=== PATIENT | female | born 1930 | race Caucasian/White ===

== ENCOUNTER 2017-03-01 16:31 | Inpatient (IN) | payer MEDICARE ==
[~2017-03-01] VITALS: Ht 167.6 cm; Wt 70.1 kg
[~2017-03-01 16:31] MED LIST: DIPH25 PO; HYDR-4068 PO; LEVO75TA10 PO; METO25TA6 PO; METO50TA18 PO; PANT40TA25 PO
[2017-03-01 17:10] LABS: BASOPHILS % (AUTO) 0.7 % (0.0-5.0); EOSINOPHILS % (AUTO) 0.2 % (0.0-8.0); HEMATOCRIT 41.3 % (36-48); LYMPHOCYTES % (AUTO) 11.1 % (21.0-51.0); MEAN CORPUSCULAR HEMOGLOBIN 28.2 pg (27.0-33.0); MEAN CORPUSCULAR HGB CONC 32.6 g/dL (32.0-36.0); MEAN CORPUSCULAR VOLUME 86.7 fL (79-99); MONOCYTES % (AUTO) 7.3 % (3.0-13.0); NEUTROPHILS % (AUTO) 80.7 % (40.0-77.0); PLATELET COUNT (AUTO) 315 K/uL (130-400); RED BLOOD CELL COUNT(AUTO) 4.76 MIL/uL (4.00-5.50); RED CELL DISTRIBUTION WIDTH 14.2 % (11.0-15.5); WHITE BLOOD COUNT (AUTO) 12.4 K/uL (4.8-10.8)
[2017-03-01] MEDS ORDERED: PANTOPRAZOLE SODIUM 40 MG TABLET.DR PO ONE (17:12)
[2017-03-01] MEDS ORDERED: ENOXAPARIN SODIUM 100 MG/1 ML SQ ONE (17:13)
[2017-03-01] MEDS ORDERED: CLOPIDOGREL BISULFATE 75 MG TAB ONE (17:14)
[2017-03-01] MEDS ORDERED: METOPROLOL TARTRATE 50 MG TAB ONE (17:14)
[2017-03-01] MEDS ORDERED: ASPIRIN 81MG TAB.CHEW ONE (17:14)
[2017-03-01 17:27] LABS: ALBUMIN 3.9 g/dL (3.5-5.0); BILIRUBIN,DIRECT 0.1 mg/dL (0.0-0.3); BILIRUBIN,TOTAL 0.7 mg/dL (0.2-1.0); TOTAL PROTEIN, SERUM 7.9 g/dL (6.0-8.3)
[2017-03-01 17:34] LABS: CREATINE KINASE MB 0.6 ng/mL (0.5-3.6)
[2017-03-01] MEDS ORDERED: SODIUM CHLORIDE 0.9% 10 ML VIAL IVP SCH (18:15)
[2017-03-01] MEDS ORDERED: MAG HYDROX/AL HYDROX/SIMETH ES 30 ML SUSP UDCUP PO PRN (18:15)
[2017-03-01] MEDS ORDERED: ONDANSETRON HCL 4 MG/2 ML VIAL IVP PRN (18:15)
[2017-03-01] MEDS ORDERED: DiphenhydrAMINE HCL 50 MG/ML VIAL IVP PRN (18:15)
[2017-03-01] MEDS: FAMOTIDINE 20MG TAB 20 MG TAB PO SCH (21:00)
[2017-03-01] MEDS: ENOXAPARIN SODIUM 80 MG/0.8 ML SQ SCH (21:00)
[2017-03-01] MEDS: METOPROLOL TARTRATE 50 MG TAB PO SCH (21:00)
[2017-03-01 21:32] VITALS: BP 139/88
[2017-03-01 23:19] VITALS: BP 164/101
[2017-03-01] MEDS: CLONIDINE HCL 0.1 MG TABLET PO PRN (23:26)
[2017-03-01 23:43] LABS: CREATINE KINASE MB 0.5 ng/mL (0.5-3.6); CREATINE KINASE, TOTAL 16 U/L (21-232); MYOGLOBIN 47 ng/mL (10-92); TROPONIN I < 0.04 ng/mL (0.00-0.06)
[2017-03-02] MEDS ORDERED: HYDR-4060 PO (02:18)
[2017-03-02] MEDS ORDERED: METO50TA18 PO (02:18)
[2017-03-02] MEDS ORDERED: PANT40TA25 PO (02:18)
[2017-03-02] MEDS ORDERED: DULO60CA63 PO (02:18)
[2017-03-02] MEDS ORDERED: METO25TA6 PO (02:18)
[2017-03-02] MEDS ORDERED: LEVO75 PO (02:18)
[2017-03-02] MEDS ORDERED: [UNRECOGNIZED DRUG - OTHER] PO (02:18)
[2017-03-02] MEDS ORDERED: VIT D3 PO (02:18)
[2017-03-02 03:43] VITALS: BP 160/89
[2017-03-02 04:56] LABS: CARBON DIOXIDE 30 mmol/L (21-32); CHLORIDE 108 mmol/L (101-111); CREATINE KINASE MB < 0.5 ng/mL (0.5-3.6); CREATINE KINASE, TOTAL 17 U/L (21-232); CREATININE 0.9 mg/dL (0.5-1.5); GLOMERULAR FILTR. RATE CALC 63 mL/min (>60); GLUCOSE,RANDOM 146 mg/dL (70-105); MYOGLOBIN 43 ng/mL (10-92); POTASSIUM 4.2 mmol/L (3.5-5.1); SODIUM SERUM 142 mmol/L (136-145); TROPONIN I < 0.04 ng/mL (0.00-0.06); UREA NITROGEN, BLOOD 25 mg/dL (7-18)
[2017-03-02] MEDS: LEVOTHYROXINE 75 MCG TABLET PO SCH (06:32)
[2017-03-02 07:41] VITALS: BP 161/90
[2017-03-02] MEDS: FAMOTIDINE 20MG TAB 20 MG TAB PO SCH ×2 (08:17→21:09)
[2017-03-02] MEDS: ASPIRIN 81MG TAB.CHEW PO SCH (08:18)
[2017-03-02] MEDS: DULOXETINE HCL 30 MG CAP PO SCH (08:18)
[2017-03-02] MEDS: CLOPIDOGREL BISULFATE 75 MG TAB PO SCH (08:45)
[2017-03-02] MEDS: PANTOPRAZOLE SODIUM 40 MG TABLET.DR PO SCH (08:45)
[2017-03-02] MEDS: GUAIFENESIN/DEXTROMETHORPHAN 1 EACH TAB.SR.12H PO SCH ×2 (08:45→21:10)
[2017-03-02] MEDS: METOPROLOL TARTRATE 50 MG TAB PO SCH ×2 (08:50→21:09)
[2017-03-02] MEDS: ENOXAPARIN SODIUM 80 MG/0.8 ML SQ SCH ×2 (08:52→21:11)
[2017-03-02 11:27] VITALS: BP 153/85
[2017-03-02] MEDS ORDERED: REGADENOSON 0.4 MG/5 ML PF SYG IVP SCH (14:15)
[2017-03-02 16:28] VITALS: BP 166/92
[2017-03-02 19:48] VITALS: BP 124/60
[2017-03-02 23:37] VITALS: BP 150/93
[2017-03-03] VITALS (8 sets, daily range): BP systolic 140–174; BP diastolic 69–93
[2017-03-03] MEDS: CLONIDINE HCL 0.1 MG TABLET PO PRN (03:19)
[2017-03-03] MEDS: LEVOTHYROXINE 75 MCG TABLET PO SCH (06:22)
[2017-03-03] MEDS: FAMOTIDINE 20MG TAB 20 MG TAB PO SCH ×2 (08:59→20:27)
[2017-03-03] MEDS: ENOXAPARIN SODIUM 80 MG/0.8 ML SQ SCH (09:30)
[2017-03-03] MEDS: CLOPIDOGREL BISULFATE 75 MG TAB PO SCH (09:37)
[2017-03-03] MEDS: PANTOPRAZOLE SODIUM 40 MG TABLET.DR PO SCH (09:37)
[2017-03-03] MEDS: DULOXETINE HCL 30 MG CAP PO SCH (09:37)
[2017-03-03] MEDS: ASPIRIN 81MG TAB.CHEW PO SCH (09:38)
[2017-03-03] MEDS: METOPROLOL TARTRATE 50 MG TAB PO SCH ×2 (09:38→20:27)
[2017-03-03] MEDS: GUAIFENESIN/DEXTROMETHORPHAN 1 EACH TAB.SR.12H PO SCH ×2 (09:38→20:27)
[2017-03-03] MEDS ORDERED: ENOXAPARIN SODIUM 40 MG/0.4 ML SYRINGE SQ SCH (09:45)
[2017-03-03] MEDS ORDERED: NITROGLYCERIN 0.4 MG SL TAB SL ONE (15:18)
[2017-03-03] MEDS ORDERED: NITROGLYCERIN 0.4 MG SL TAB SL PRN (15:30)
[2017-03-04] VITALS (13 sets, daily range): BP systolic 102–160; BP diastolic 44–95
[2017-03-04] MEDS: LEVOTHYROXINE 75 MCG TABLET PO SCH (06:29)
[2017-03-04] MEDS: ASPIRIN 81MG TAB.CHEW PO SCH (10:05)
[2017-03-04] MEDS: METOPROLOL TARTRATE 50 MG TAB PO SCH ×2 (10:05→20:57)
[2017-03-04] MEDS: CLOPIDOGREL BISULFATE 75 MG TAB PO SCH (10:05)
[2017-03-04] MEDS: PANTOPRAZOLE SODIUM 40 MG TABLET.DR PO SCH (10:05)
[2017-03-04] MEDS: FAMOTIDINE 20MG TAB 20 MG TAB PO SCH ×2 (10:05→20:57)
[2017-03-04] MEDS: GUAIFENESIN/DEXTROMETHORPHAN 1 EACH TAB.SR.12H PO SCH ×2 (10:05→20:57)
[2017-03-04] MEDS: DULOXETINE HCL 30 MG CAP PO SCH (10:06)
[2017-03-04] MEDS ORDERED: ISOVUE-370 50ML VIAL IV ONE (16:57)
[2017-03-04] MEDS ORDERED: BIVALIRUDIN 250 MG/VIAL IV ONE (16:57)
[2017-03-04] MEDS ORDERED: HEPARIN SODIUM 1000UNIT/ML 10ML VIAL ONE (16:57)
[2017-03-04] MEDS ORDERED: IOPAMIDOL-370 100 ML VIAL IV ONE (16:57)
[2017-03-04] MEDS ORDERED: LIDOCAINE HCL 2% 20ML ONE (16:57)
[2017-03-04] MEDS ORDERED: LABETALOL HCL 5 MG/ML 20ML VIAL IV ONE (17:46)
[2017-03-04] MEDS ORDERED: FUROSEMIDE 10 MG/ML 2ML VIAL ONE (18:03)
[2017-03-04] MEDS ORDERED: HYDRALAZINE HCL 20 MG/ML VIAL ONE ×2 (18:08→18:14)
[2017-03-04] MEDS ORDERED: SODIUM CHLORIDE 0.9% 1000ML 1,000 ML IV SCH (18:11)
[2017-03-04] MEDS ORDERED: DEXTROSE 50%-WATER 50 ML DISP.SYRIN IV PRN (18:15)
[2017-03-04] MEDS ORDERED: GLUCAGON 1MG KIT 1 MG ML IM PRN (18:15)
[2017-03-04] MEDS ORDERED: PHARMACY COMMUNICATION MISC SCH ×2 (18:30→19:30)
[2017-03-04] MEDS ORDERED: DOPAMINE HCL 400 MG/D5%-WATER 250 ML IV ONE (18:44)
[2017-03-04] MEDS ORDERED: DOPAMINE HCL 800 MG in SODIUM CHLORIDE 0.9% 240 ML IV STA (18:50)
[2017-03-04] MEDS ORDERED: DOPAMINE HCL 800 MG in SODIUM CHLORIDE 0.9% 240 ML IV SCH (19:43)
[2017-03-05] VITALS (15 sets, daily range): BP systolic 112–166; BP diastolic 43–89
[2017-03-05 04:11] LABS: HEMATOCRIT 38.4 % (36-48); MEAN CORPUSCULAR HEMOGLOBIN 28.7 pg (27.0-33.0); MEAN CORPUSCULAR HGB CONC 33.3 g/dL (32.0-36.0); MEAN CORPUSCULAR VOLUME 86.2 fL (79-99); PLATELET COUNT (AUTO) 260 K/uL (130-400); RED BLOOD CELL COUNT(AUTO) 4.46 MIL/uL (4.00-5.50); RED CELL DISTRIBUTION WIDTH 14.3 % (11.0-15.5); WHITE BLOOD COUNT (AUTO) 16.2 K/uL (4.8-10.8)
[2017-03-05 04:31] LABS: CREATININE 0.9 mg/dL (0.5-1.5); POTASSIUM 3.5 mmol/L (3.5-5.1)
[2017-03-05] MEDS: LEVOTHYROXINE 75 MCG TABLET PO SCH (05:39)
[2017-03-05] MEDS: ASPIRIN 81MG TAB.CHEW PO SCH (09:24)
[2017-03-05] MEDS: FAMOTIDINE 20MG TAB 20 MG TAB PO SCH ×2 (09:24→20:48)
[2017-03-05] MEDS: PANTOPRAZOLE SODIUM 40 MG TABLET.DR PO SCH (09:24)
[2017-03-05] MEDS: CLOPIDOGREL BISULFATE 75 MG TAB PO SCH (09:24)
[2017-03-05] MEDS: DULOXETINE HCL 30 MG CAP PO SCH (09:25)
[2017-03-05] MEDS: METOPROLOL TARTRATE 50 MG TAB PO SCH ×2 (09:25→20:48)
[2017-03-05] MEDS: GUAIFENESIN/DEXTROMETHORPHAN 1 EACH TAB.SR.12H PO SCH ×2 (09:30→20:48)
[2017-03-05] MEDS ORDERED: LISINOPRIL 5 MG TABLET PO SCH (10:00)
[2017-03-05] MEDS: FUROSEMIDE 20 MG TABLET PO SCH (11:07)
[2017-03-06 03:37] VITALS: BP 154/81
[2017-03-06 04:38] LABS: POTASSIUM 4.4 mmol/L (3.5-5.1)
[2017-03-06] MEDS: LEVOTHYROXINE 75 MCG TABLET PO SCH (05:52)
[2017-03-06 07:19] VITALS: BP 148/82
[2017-03-06] MEDS: GUAIFENESIN/DEXTROMETHORPHAN 1 EACH TAB.SR.12H PO SCH (08:47)
[2017-03-06] MEDS: DULOXETINE HCL 30 MG CAP PO SCH (08:48)
[2017-03-06] MEDS: FAMOTIDINE 20MG TAB 20 MG TAB PO SCH (08:48)
[2017-03-06] MEDS: PANTOPRAZOLE SODIUM 40 MG TABLET.DR PO SCH (08:48)
[2017-03-06] MEDS: METOPROLOL TARTRATE 50 MG TAB PO SCH (08:48)
[2017-03-06] MEDS: ASPIRIN 81MG TAB.CHEW PO SCH (08:48)
[2017-03-06] MEDS: FUROSEMIDE 20 MG TABLET PO SCH (08:48)
[2017-03-06] MEDS ORDERED: FUROSEMIDE 20 MG TABLET PO SCH (09:00)
[2017-03-06] MEDS ORDERED: ENOXAPARIN SODIUM 40 MG/0.4 ML SYRINGE SQ SCH (09:00)
[2017-03-06] MEDS ORDERED: LISINOPRIL 10 MG TABLET PO SCH (09:45)
[2017-03-06] MEDS ORDERED: METO-409 PO (09:50)
[2017-03-06] MEDS ORDERED: FURO20TA4 PO (09:50)
[2017-03-06] MEDS ORDERED: LISI10TA7 PO (09:50)
[2017-03-06] MEDS ORDERED: ASPI-555 PO (09:58)
[2017-03-06 11:32] VITALS: BP 147/70
[2017-03-06 13:19] VITALS: BP_SYST 141; BP_SYST 90; BP_DIAS 45; BP_DIAS 66
== END 2017-03-06 15:29 | disposition home or self-care (01) | DRG 286 ==
LOC: EDH 16:31 → EDHIP 16:32 → OBSVTOIN 16:32 → 2AH 21:00 → 2CH 03-04 18:33 → 2AH 03-05 14:53
PROVIDERS: ADMIT Internal Medicine; ATTEND Internal Medicine
PROC: 4A023N7 Measurement of Cardiac Sampling and Pressure, Left Heart, Percutaneous Approach (ICD-10-PCS; principal; 2017-03-04)
PROC: B2111ZZ Fluoroscopy of Multiple Coronary Arteries using Low Osmolar Contrast (ICD-10-PCS; 2017-03-04)
PROC: B2151ZZ Fluoroscopy of Left Heart using Low Osmolar Contrast (ICD-10-PCS; 2017-03-04)
DX: I25.110 Atherosclerotic heart disease of native coronary artery with unstable angina pectoris (principal); I50.43 Acute on chronic combined systolic (congestive) and diastolic (congestive) heart failure; I42.0 Dilated cardiomyopathy; I24.9 Acute ischemic heart disease, unspecified; J44.9 Chronic obstructive pulmonary disease, unspecified; I13.0 Hypertensive heart and chronic kidney disease with heart failure and stage 1 through stage 4 chronic kidney disease, or unspecified chronic kidney disease; I16.1 Hypertensive emergency; E03.9 Hypothyroidism, unspecified; E78.5 Hyperlipidemia, unspecified; K21.9 Gastro-esophageal reflux disease without esophagitis; M79.7 Fibromyalgia; N18.9 Chronic kidney disease, unspecified; M54.9 Dorsalgia, unspecified; G89.29 Other chronic pain; Z79.899 Other long term (current) drug therapy
CPT/HCPCS: 36415; 71045; 78452; 80048; 80076; 82550; 82553; 82948; 83874; 83880; 84484; 85025; 85027; 93005; 93017; 93306; 93458; 96374; A9500; C1760; C1894; J0360; J0583; J1200; J1265; J1644; J1650; J1940; J2785; J3490; J7030; Q9967

== ENCOUNTER 2018-01-22 12:06 | Emergency (ER) | payer MEDICARE ==
[~2018-01-22 12:06] MED LIST changes: +AMIO200T44 PO; +APIX5TAB PO; +ASPI-555 PO; -DIPH25 PO; +DULO60CA63 PO; +FLUC100T8 PO; +FURO20TA6 PO; +GABA-529 PO; -HYDR-4068 PO; +LEVO50TA11 PO; -LEVO75TA10 PO; +LISI-613 PO; -METO25TA6 PO; -METO50TA18 PO; +NITR0.4T SL; +PRED10B PO; +TRAM50TA4 PO; +VIT D3 PO
[2018-01-22 12:42] LABS: BASOPHILS % (AUTO) 0.9 % (0.0-5.0); EOSINOPHILS % (AUTO) 3.7 % (0.0-8.0); HEMATOCRIT 36.7 % (36-48); LYMPHOCYTES % (AUTO) 19.9 % (21.0-51.0); MEAN CORPUSCULAR HGB CONC 31.2 g/dL (32.0-36.0); MEAN CORPUSCULAR VOLUME 80.3 fL (79-99); MONOCYTES % (AUTO) 8.6 % (3.0-13.0); NEUTROPHILS % (AUTO) 66.9 % (40.0-77.0); PLATELET COUNT (AUTO) 385 K/uL (130-400); RED BLOOD CELL COUNT(AUTO) 4.57 MIL/uL (4.00-5.50); RED CELL DISTRIBUTION WIDTH 15.4 % (11.0-15.5)
[2018-01-22 12:54] LABS: CREATININE 1.4 mg/dL (0.5-1.5); POTASSIUM 4.4 mmol/L (3.5-5.1)
[2018-01-22] MEDS ORDERED: ONDANSETRON HCL 4 MG/2 ML VIAL ONE (12:54)
[2018-01-22] MEDS ORDERED: SODIUM CHLORIDE 0.9% 500ML 500 ML IV ONE (12:55)
[2018-01-22 12:56] LABS: AMYLASE 35 U/L (25-115); LIPASE 78 U/L (114-286)
[2018-01-22 12:59] LABS: ALBUMIN 3.3 g/dL (3.5-5.0); BILIRUBIN,TOTAL 0.6 mg/dL (0.2-1.0); TOTAL PROTEIN, SERUM 7.8 g/dL (6.0-8.3)
[2018-01-22] MEDS ORDERED: PANTOPRAZOLE 40 MG/VIAL IVP ONE (13:00)
== END 2018-01-22 15:08 | disposition home or self-care (01) ==
LOC: EDH 12:06
DX: R11.2 Nausea with vomiting, unspecified (principal); R10.13 Epigastric pain; I10 Essential (primary) hypertension; I25.10 Atherosclerotic heart disease of native coronary artery without angina pectoris; M19.90 Unspecified osteoarthritis, unspecified site; Z90.710 Acquired absence of both cervix and uterus; Z98.890 Other specified postprocedural states; Z91.048 Other nonmedicinal substance allergy status
CPT/HCPCS: 36415; 74176; 80053; 82150; 83690; 84484; 85025; 93005; 96374; 96375; 99284; C9113; J2405; J7040

== ENCOUNTER 2018-02-01 11:44 | Observation (INO) | payer MEDICARE ==
[~2018-02-01] VITALS: Ht 167.6 cm; Wt 71.6 kg
[2018-02-01] MEDS ORDERED: GUAIFENESIN-DM 200/20 MG 10 ML PO PRN (12:15)
[2018-02-01] MEDS ORDERED: ONDANSETRON HCL 4 MG/2 ML VIAL IVP PRN (12:15)
[2018-02-01] MEDS ORDERED: ZOLPIDEM TARTRATE 5 MG TAB PO PRN (12:15)
[2018-02-01] MEDS ORDERED: DiphenhydrAMINE HCL 50 MG/ML VIAL IVP PRN (12:15)
[2018-02-01] MEDS ORDERED: LACTULOSE 20 GM/30 ML UDCUP PO PRN (12:15)
[2018-02-01] MEDS ORDERED: DEXTROSE 5 %-0.45 % NACL 1,000 ML IV SCH (12:15)
[2018-02-01] MEDS: PANTOPRAZOLE SODIUM 40 MG TABLET.DR PO SCH (12:20)
[2018-02-01] MEDS ORDERED: SODIUM CHLORIDE 0.9% 50 ML IV ONE (12:26)
[2018-02-01] MEDS ORDERED: CEFTRIAXONE SODIUM 1 GM ONE (12:26)
[2018-02-01] MEDS: CEFTRIAXONE SODIUM 1 GM IVP SCH (12:30)
[2018-02-01 12:43] LABS: BASOPHILS % (AUTO) 0.6 % (0.0-5.0); EOSINOPHILS % (AUTO) 1.4 % (0.0-8.0); HEMATOCRIT 31.4 % (36-48); MEAN CORPUSCULAR HEMOGLOBIN 24.8 pg (27.0-33.0); MEAN CORPUSCULAR HGB CONC 31.8 g/dL (32.0-36.0); MEAN CORPUSCULAR VOLUME 77.9 fL (79-99); MONOCYTES % (AUTO) 10.9 % (3.0-13.0); NEUTROPHILS % (AUTO) 71.1 % (40.0-77.0); NUCLEATED RED BLOOD CELLS 0.1 % (0.0-0.19); PLATELET COUNT (AUTO) 395 K/uL (130-400); RED BLOOD CELL COUNT(AUTO) 4.03 MIL/uL (4.00-5.50); WHITE BLOOD COUNT (AUTO) 8.2 K/uL (4.8-10.8)
[2018-02-01 12:52] LABS: CREATININE 1.5 mg/dL (0.5-1.5); POTASSIUM 4.5 mmol/L (3.5-5.1)
[2018-02-01 12:57] LABS: ALBUMIN 2.9 g/dL (3.5-5.0); BILIRUBIN,DIRECT 0.1 mg/dL (0.0-0.3); BILIRUBIN,TOTAL 0.4 mg/dL (0.2-1.0)
[2018-02-01] MEDS ORDERED: DEXTROSE 5 %-0.45 % NACL 1,000 ML IV ONE (13:28)
[2018-02-01] MEDS: DEXTROSE 5 %-0.45 % NACL 1,000 ML IV SCH (13:45)
[2018-02-01 18:30] VITALS: BP 133/82
[2018-02-01 19:00] VITALS: BP 128/87
[2018-02-01] MEDS: IPRATROPIUM/ALBUTEROL SULFATE 3 ML SOLUTION IH SCH (19:09)
[2018-02-01 23:00] VITALS: BP 157/74
[2018-02-02] VITALS (13 sets, daily range): BP systolic 111–171; BP diastolic 63–85
[2018-02-02] MEDS: IPRATROPIUM/ALBUTEROL SULFATE 3 ML SOLUTION IH SCH
[2018-02-02] MEDS: DEXTROSE 5 %-0.45 % NACL 1,000 ML IV SCH ×2 (04:14→10:55)
[2018-02-02] MEDS ORDERED: OMEP20TA25 PO (04:32)
[2018-02-02] MEDS ORDERED: METO25TA6 PO (04:32)
[2018-02-02] MEDS ORDERED: AMIO100T4 PO (04:32)
[2018-02-02] MEDS ORDERED: LISI-617 PO (04:35)
[2018-02-02] MEDS ORDERED: DULO30CA51 PO (04:35)
[2018-02-02] MEDS ORDERED: FAMO40TA75 PO (04:36)
[2018-02-02] MEDS ORDERED: NITROGLYCERIN 0.4 MG SL TAB SL PRN (04:45)
[2018-02-02] MEDS ORDERED: TRAMADOL HCL 50 MG TABLET PO PRN (04:45)
[2018-02-02 05:08] LABS: BASOPHILS % (AUTO) 0.9 % (0.0-5.0); HEMATOCRIT 29.7 % (36-48); LYMPHOCYTES % (AUTO) 19.2 % (21.0-51.0); MEAN CORPUSCULAR HEMOGLOBIN 25.4 pg (27.0-33.0); MEAN CORPUSCULAR HGB CONC 32.5 g/dL (32.0-36.0); MEAN CORPUSCULAR VOLUME 78.2 fL (79-99); MONOCYTES % (AUTO) 10.7 % (3.0-13.0); NEUTROPHILS % (AUTO) 67.2 % (40.0-77.0); PLATELET COUNT (AUTO) 369 K/uL (130-400); RED CELL DISTRIBUTION WIDTH 16.3 % (11.0-15.5)
[2018-02-02 05:26] LABS: CREATININE 1.4 mg/dL (0.5-1.5); POTASSIUM 3.8 mmol/L (3.5-5.1)
[2018-02-02] MEDS: IPRATROPIUM 0.5 MG/2.5 ML INH IH SCH ×4 (06:36→23:43)
[2018-02-02] MEDS: LEVOTHYROXINE 50 MCG TABLET PO SCH (09:00)
[2018-02-02] MEDS: AMIODARONE HCL 200 MG TABLET PO SCH (09:00)
[2018-02-02] MEDS: DULOXETINE HCL 30 MG CAP PO SCH ×2 (09:00→20:53)
[2018-02-02] MEDS: APIXABAN 5 MG TABLET PO SCH ×2 (09:00→20:53)
[2018-02-02] MEDS: PANTOPRAZOLE SODIUM 40 MG TABLET.DR PO SCH ×2 (09:00)
[2018-02-02] MEDS ORDERED: NON-FORMULARY MEDICATION 1 EACH (Omeprazole 20 MG) PO SCH (09:00)
[2018-02-02] MEDS: ASPIRIN 81MG TAB.CHEW PO SCH (09:00)
[2018-02-02] MEDS ORDERED: FAMOTIDINE 40 MG PO SCH (09:00)
[2018-02-02 09:23] LABS: INR 1.15 (0.85-1.15)
[2018-02-02] MEDS ORDERED: LIDOCAINE HCL 1% 20 ML VIAL ONE (09:56)
[2018-02-02] MEDS: METOPROLOL TARTRATE 25 MG TAB PO SCH ×2 (11:06→20:53)
[2018-02-02] MEDS: LISINOPRIL 5 MG TABLET PO SCH ×2 (11:06→20:53)
[2018-02-02] MEDS: CEFTRIAXONE SODIUM 1 GM IVP SCH (13:31)
[2018-02-02] MEDS ORDERED: GABAPENTIN 100 MG CAPSULE PO SCH (21:00)
[2018-02-03 03:00] VITALS: BP 132/74
[2018-02-03 04:56] LABS: BASOPHILS % (AUTO) 1.1 % (0.0-5.0); EOSINOPHILS % (AUTO) 1.3 % (0.0-8.0); HEMATOCRIT 31.8 % (36-48); LYMPHOCYTES % (AUTO) 19.8 % (21.0-51.0); MEAN CORPUSCULAR HEMOGLOBIN 24.2 pg (27.0-33.0); MEAN CORPUSCULAR HGB CONC 31.3 g/dL (32.0-36.0); MEAN CORPUSCULAR VOLUME 77.4 fL (79-99); MONOCYTES % (AUTO) 11.7 % (3.0-13.0); NEUTROPHILS % (AUTO) 66.1 % (40.0-77.0); NUCLEATED RED BLOOD CELLS 0.1 % (0.0-0.19); PLATELET COUNT (AUTO) 320 K/uL (130-400); RED BLOOD CELL COUNT(AUTO) 4.11 MIL/uL (4.00-5.50); RED CELL DISTRIBUTION WIDTH 16.2 % (11.0-15.5); WHITE BLOOD COUNT (AUTO) 8.8 K/uL (4.8-10.8)
[2018-02-03 05:01] LABS: CREATININE 1.5 mg/dL (0.5-1.5); POTASSIUM 4.6 mmol/L (3.5-5.1)
[2018-02-03] MEDS: DEXTROSE 5 %-0.45 % NACL 1,000 ML IV SCH (05:45)
[2018-02-03] MEDS: LEVOTHYROXINE 50 MCG TABLET PO SCH (06:26)
[2018-02-03] MEDS: IPRATROPIUM 0.5 MG/2.5 ML INH IH SCH ×2 (06:54→11:32)
[2018-02-03 07:00] VITALS: BP 135/80
[2018-02-03] MEDS: PANTOPRAZOLE SODIUM 40 MG TABLET.DR PO SCH ×2 (09:00→09:45)
[2018-02-03] MEDS: APIXABAN 5 MG TABLET PO SCH (09:43)
[2018-02-03] MEDS: LISINOPRIL 5 MG TABLET PO SCH (09:43)
[2018-02-03] MEDS: ASPIRIN 81MG TAB.CHEW PO SCH (09:44)
[2018-02-03] MEDS: DULOXETINE HCL 30 MG CAP PO SCH (09:44)
[2018-02-03] MEDS: AMIODARONE HCL 200 MG TABLET PO SCH (09:44)
[2018-02-03] MEDS: METOPROLOL TARTRATE 25 MG TAB PO SCH (09:44)
[2018-02-03 11:00] VITALS: BP 122/71
[2018-02-03] MEDS: CEFTRIAXONE SODIUM 1 GM IVP SCH (12:30)
[2018-02-09] MEDS ORDERED: FURO20TA4 PO (06:08)
[2018-02-09] MEDS ORDERED: METO-408 PO (06:08)
[2018-02-09] MEDS ORDERED: LOSA25TA16 PO (06:08)
[2018-02-09] MEDS ORDERED: AMIO200T5 PO (06:08)
[2018-02-09] MEDS ORDERED: APIX2.5T PO (06:08)
== END 2018-02-03 12:55 | disposition home or self-care (01) ==
LOC: EDH 11:44 → EDHIP 11:45 → 3CH 17:23
PROVIDERS: ADMIT Internal Medicine; ATTEND Internal Medicine
DX: J18.1 Lobar pneumonia, unspecified organism (principal); J44.0 Chronic obstructive pulmonary disease with (acute) lower respiratory infection; R11.2 Nausea with vomiting, unspecified; I13.0 Hypertensive heart and chronic kidney disease with heart failure and stage 1 through stage 4 chronic kidney disease, or unspecified chronic kidney disease; N18.3 Chronic kidney disease, stage 3 (moderate); G89.29 Other chronic pain; M54.9 Dorsalgia, unspecified; F32.9 Major depressive disorder, single episode, unspecified; I50.9 Heart failure, unspecified; D53.9 Nutritional anemia, unspecified; E03.9 Hypothyroidism, unspecified; E78.5 Hyperlipidemia, unspecified; I34.0 Nonrheumatic mitral (valve) insufficiency; I48.91 Unspecified atrial fibrillation; K29.70 Gastritis, unspecified, without bleeding; Z79.01 Long term (current) use of anticoagulants; Z95.2 Presence of prosthetic heart valve; Z88.8 Allergy status to other drugs, medicaments and biological substances
CPT/HCPCS: 32555; 36415 ×3; 71045; 71250; 80048 ×3; 80076; 85025 ×3; 85610; 85730; 87071; 87205; 94640 ×7; 94664; 96361; 96374; 99284; G0378 ×49; J0696 ×2; J7042 ×2

== ENCOUNTER 2018-02-05 10:51 | Emergency (ER) | payer MEDICARE ==
[~2018-02-05 10:51] MED LIST changes: +AMIO100T4 PO; -AMIO200T44 PO; +DULO30CA51 PO; -DULO60CA63 PO; +FAMO40TA75 PO; -FLUC100T8 PO; -FURO20TA6 PO; -LISI-613 PO; +LISI-617 PO; +METO25TA6 PO; +OMEP20TA25 PO; -PRED10B PO
[2018-02-05 12:04] LABS: BASOPHILS % (AUTO) 0.9 % (0.0-5.0); EOSINOPHILS % (AUTO) 1.1 % (0.0-8.0); HEMATOCRIT 32.5 % (36-48); LYMPHOCYTES % (AUTO) 16.3 % (21.0-51.0); MEAN CORPUSCULAR HEMOGLOBIN 24.3 pg (27.0-33.0); MEAN CORPUSCULAR HGB CONC 31.3 g/dL (32.0-36.0); MEAN CORPUSCULAR VOLUME 77.7 fL (79-99); MONOCYTES % (AUTO) 10.3 % (3.0-13.0); NEUTROPHILS % (AUTO) 71.4 % (40.0-77.0); NUCLEATED RED BLOOD CELLS 0.1 % (0.0-0.19); PLATELET COUNT (AUTO) 355 K/uL (130-400); RED BLOOD CELL COUNT(AUTO) 4.18 MIL/uL (4.00-5.50); WHITE BLOOD COUNT (AUTO) 8.2 K/uL (4.8-10.8)
[2018-02-05 12:28] LABS: CREATININE 1.7 mg/dL (0.5-1.5); POTASSIUM 4.3 mmol/L (3.5-5.1)
[2018-02-05 12:30] LABS: INR 1.29 (0.85-1.15); PARTIAL THROMBOPLASTIN TIME 33.4 SEC (26.3-35.5); PROTHROMBIN TIME 13.5 SEC (9.6-11.6)
[2018-02-05 12:34] LABS: ALBUMIN 3.1 g/dL (3.5-5.0); BILIRUBIN,TOTAL 0.4 mg/dL (0.2-1.0); TOTAL PROTEIN, SERUM 7.5 g/dL (6.0-8.3)
[2018-02-05 12:58] LABS: APPEARANCE,URINE Cloudy (CLEAR); BILIRUBIN,URINE Negative (NEGATIVE); COLOR,URINE Yellow (YELLOW); GLUCOSE, URINE (UA) Negative (NEGATIVE); KETONES,URINE Negative (NEGATIVE); LEUKOCYTE ESTERASE ,URINE Trace (NEGATIVE); NITRATE,URINE Negative (NEGATIVE); OCCULT BLOOD,URINE Negative (NEGATIVE); PROTEIN,URINE Negative (NEGATIVE); UROBILINOGEN,URINE 0.2 mg/dL (0.2-1.0)
[2018-02-05 13:24] LABS: BACTERIA,URINE Few /HPF (None Seen); RBC,URINE 0-1 /HPF (0-1); WBC,URINE 0-1 /HPF (0-1)
[2018-02-05 13:25] LABS: SQUAMOUS EPITHELIAL CELL,UR 0-2 /HPF (0-2)
[2018-02-05] MEDS ORDERED: LIDOCAINE HCL 2% VISCOUS 15 ML UDCUP ONE (14:07)
[2018-02-05] MEDS ORDERED: MAG HYDROX/AL HYDROX/SIMETH ES 30 ML SUSP UDCUP ONE (14:07)
== END 2018-02-05 16:37 | disposition home or self-care (01) ==
LOC: EDH 10:51
DX: R10.10 Upper abdominal pain, unspecified (principal); R11.0 Nausea
CPT/HCPCS: 36415; 80053; 81001; 82150; 82550; 83690; 84484; 85025; 85610; 85730; 93005

== ENCOUNTER 2018-03-14 08:55 | Emergency (ER) | payer MEDICARE ==
[~2018-03-14 08:55] MED LIST changes: -AMIO100T4 PO; +AMIO200T5 PO; +APIX2.5T PO; -APIX5TAB PO; -FAMO40TA75 PO; +FURO20TA4 PO; -LISI-617 PO; +LOSA25TA41 PO; +METO-408 PO; -METO25TA6 PO; -PANT40TA25 PO
[2018-03-14 09:15] LABS: BASOPHILS % (AUTO) 0.8 % (0.0-5.0); EOSINOPHILS % (AUTO) 5.2 % (0.0-8.0); HEMATOCRIT 30.5 % (36-48); LYMPHOCYTES % (AUTO) 13.5 % (21.0-51.0); MEAN CORPUSCULAR HEMOGLOBIN 23.4 pg (27.0-33.0); MEAN CORPUSCULAR HGB CONC 31.7 g/dL (32.0-36.0); MEAN CORPUSCULAR VOLUME 73.9 fL (79-99); MONOCYTES % (AUTO) 7.4 % (3.0-13.0); NEUTROPHILS % (AUTO) 73.1 % (40.0-77.0); PLATELET COUNT (AUTO) 280 K/uL (130-400); RED BLOOD CELL COUNT(AUTO) 4.13 MIL/uL (4.00-5.50); RED CELL DISTRIBUTION WIDTH 18.6 % (11.0-15.5); WHITE BLOOD COUNT (AUTO) 8.3 K/uL (4.8-10.8)
[2018-03-14 09:23] LABS: CARBON DIOXIDE 30 mmol/L (21-32); CHLORIDE 101 mmol/L (101-111); CREATININE 1.9 mg/dL (0.5-1.5); GLOMERULAR FILTR. RATE CALC 27 mL/min (>60); GLUCOSE,RANDOM 144 mg/dL (70-105); POTASSIUM 4.1 mmol/L (3.5-5.1); SODIUM SERUM 138 mmol/L (136-145); UREA NITROGEN, BLOOD 38 mg/dL (7-18)
[2018-03-14 09:34] LABS: ALANINE AMINOTRANSFERASE 14 U/L (12-78); ALBUMIN 3.3 g/dL (3.5-5.0); ASPARTATE AMINOTRANSFERASE 25 U/L (10-37); BILIRUBIN,TOTAL 0.4 mg/dL (0.2-1.0); CREATINE KINASE, TOTAL 45 U/L (21-232); MYOGLOBIN 70 ng/mL (10-92); TOTAL PROTEIN, SERUM 7.6 g/dL (6.0-8.3); TROPONIN I < 0.04 ng/mL (0.00-0.06)
[2018-03-14] MEDS ORDERED: ASPIRIN 325 MG TABLET ONE ×2 (09:39→09:48)
[2018-03-14] MEDS ORDERED: SUCRALFATE 1 GM TABLET ONE (09:39)
[2018-03-14] MEDS ORDERED: ONDANSETRON HCL 4 MG/2 ML VIAL ONE (09:53)
[2018-03-14] MEDS ORDERED: ACETAMINOPHEN 325 MG TAB ONE (12:20)
[2018-03-14] MEDS ORDERED: FAMOTIDINE/PF 20 MG/2 ML VIAL IV ONE (12:20)
== END 2018-03-14 16:16 | disposition home or self-care (01) ==
LOC: EDH 08:55
DX: R07.2 Precordial pain (principal); I10 Essential (primary) hypertension; J44.9 Chronic obstructive pulmonary disease, unspecified; Z98.890 Other specified postprocedural states; Z91.048 Other nonmedicinal substance allergy status
CPT/HCPCS: 36415; 71045; 78580; 80053; 82550; 83874; 84484 ×2; 85025; 85378; 93005 ×2; 96374; 96375; 99284; A9540 ×2; J2405; J3490

== ENCOUNTER → 2018-03-22 | Outpatient (CLI) | payer MEDICARE ==
[~2018-03-22] MED LIST changes: +DULO60CA63 PO; +FURO40TA5 PO; +PANT40TA25 PO; +SACU1TAB PO; +VIT
== END | disposition home or self-care (01) ==
LOC: RAH 09:35
PROVIDERS: ATTEND Internal Medicine Cardiovascular Disease
DX: J90 Pleural effusion, not elsewhere classified (principal); I11.0 Hypertensive heart disease with heart failure; I50.23 Acute on chronic systolic (congestive) heart failure; I48.0 Paroxysmal atrial fibrillation
CPT/HCPCS: 71046

== ENCOUNTER 2018-03-24 09:47 | Inpatient (IN) | payer MEDICARE | END 2018-03-31 13:05 | LOC: EDH 09:47 → EDHIP 12:30 → 2DH 21:44 | DX: I50.43 Acute on chronic combined systolic (congestive) and diastolic (congestive) heart failure (principal); J96.91 Respiratory failure, unspecified with hypoxia; J18.1 Lobar pneumonia, unspecified organism; D68.59 Other primary thrombophilia; I42.9 Cardiomyopathy, unspecified; J44.0 Chronic obstructive pulmonary disease with (acute) lower respiratory infection; I48.92 Unspecified atrial flutter; I42.0 Dilated cardiomyopathy; D64.9 Anemia, unspecified; I48.91 Unspecified atrial fibrillation ==